=== PATIENT | female | born 1990 | race Hispanic/Latino ===

== ENCOUNTER → 2023-04-22 | Emergency (ER) | payer SELFPAY ==
[2023-04-22 09:43] LABS: Absolute Lymphocytes (CBC) 1.8 K/uL (0.7-4.9); Hematocrit 38.6 % (36.0-45.0); Lymphocytes % 19.8 % (15.3-44.8); MCV 94.3 fL (80-100); MPV 9.4 fL (7.6-11.3); Platelets 217 thou/uL (152-406)
[2023-04-22 09:50] LABS: Specific Gravity 1.006 (1.005-1.030)
[2023-04-22 09:53] LABS: Specific Gravity 1.006 (1.005-1.030); Urine Bacteria <20 /HPF (<20); Urine Bilirubin NEGATIVE (Negative); Urine Blood 3+ (OVER) (Negative); Urine Clarity Extremely Turbid (Clear); Urine Color Light-Brown (Yellow); Urine Glucose NEGATIVE (Negative); Urine Protein TRACE (Negative); Urine RBC >50 /HPF (None Seen); Urine Urobilinogen Normal (Normal)
[2023-04-22 10:10] LABS: Potassium 3.3 mEq/L (3.5-5.1)
--- NOTE | 2023-04-22 10:27 | RAD REPORT ---
EXAM DESCRIPTION: US - Transvaginal OB - 04/22/2023 9:59 am CLINICAL HISTORY: VAGINAL BLEEDING COMPARISON: No comparisons FINDINGS: The uterus appears normal size. Suspected 2 cm fibroid is present anteriorly lower uterine segment. Endometrium measures 10 mm in maximum thickness. There is no evidence of IUP. The maternal adnexa and ovaries are within normal limits. Normal Doppler blood flow was demonstrated to both ovaries. IMPRESSION: No IUP is visualized. Endometrial stripe is thickened to 10 mm. If the patient has a positive HCG level, this would be considered a of unknown location. F ollow-up serial HCG levels and pelvic sonography in 7-10 days would be recommended.
--- NOTE | 2023-04-22 10:47 | ER ---
Nurse's Notes [facility] Name: Joana Funez Age: 32 yrs Sex: Female : 1990 Arrival Date: 04/22/2023 Time: 08:47 Bed 7 Private MD: Diagnosis: Incomplete spontaneous without complication Presentation: 04/22 08:54 Chief complaint: Patient states: spotting since Tuesday, seen at [facility] and was aa5 diagnosed with UTI, was given antibiotics, pt states "the pharmacy took very long so I haven't started the antibiotics yet". Pt reports lower abd cramping around 0000 today. 08:54 Coronavirus screen: At this time, the client does not indicate any symptoms associated aa5 with coronavirus-19. Ebola Screen: Patient denies travel to an Ebola-affected area in the 21 days before illness onset. Initial Sepsis Screen: Does the patient meet any 2 criteria? HR > 90 bpm. Does the patient have a suspected source of infection? No. Patient's initial sepsis screen is negative. Risk Assessment: Do you want to hurt yourself or someone else? Patient reports no desire to harm self or others. Onset of symptoms was March 2023. 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 - Social history:: Smoking status: Patient denies any tobacco usage or history of. - Family history:: not pertinent. - Hospitalizations: : No recent hospitalization is reported. Screenin:00 [facility] ED Fall Risk Assessment (Adult) History of falling in the last 3 months, rs5 including since admission No falls in past 3 months (0 pts) Confusion or Disorientation No (0 pts) Intoxicated or Sedated No (0 pts) Impaired Gait No (0 pts) Mobility Assist Device Used No (0 pt) Altered Elimination No (0 pt) Score/Fall Risk Level 0 - 2 = Low Risk Oriented to surroundings, Maintained a safe environment. Abuse screen: Denies threats or abuse. Nutritional screening: No deficits noted. Tuberculosis screening: No symptoms or risk factors identified. Assessment: 09:00 General: Appears in no apparent distress. uncomfortable, Behavior is calm, cooperative. rs5 Pain: Complains of pain in lower abdomen Pain does not radiate. Pain currently is 4 out of 10 on a pain scale. Quality of pain is described as crampy, Pain began 4 hours ago. Is intermittent. Neuro: Level of Consciousness is awake, alert, obeys commands, Oriented to person, place, time, situation. Cardiovascular: Heart tones S1 S2 present Patient's skin is warm and dry. Rhythm is regular. Respiratory: Airway is patent Respiratory effort is even, unlabored, Respiratory pattern is regular, symmetrical, Breath sounds are clear bilaterally. GI: Abdomen is round non-distended, Bowel sounds present X 4 quads. Abd is soft and non tender X 4 quads. 09:00 : Denies burning with urination, pain. EENT: No signs and/or symptoms were reported rs5 regarding the EENT system. Derm: No signs and/or symptoms reported regarding the dermatologic system. Musculoskeletal: Circulation, motion, and sensation intact. Range of motion: intact in all extremities. 10:05 Reassessment: Patient and/or family updated on plan of care and expected duration. Pain rs5 level reassessed. Patient is alert, oriented x 3, equal unlabored respirations, skin warm/dry/pink. Patient denies pain at this time. 10:57 Obstetrical Assessment: Patient reports abdominal cramping. ko1 Vital Signs: 08:54 BP 129 / 81; Pulse 109; Resp 16 S; Temp 98(O); Pulse Ox 99% on R/A; Weight 54.43 kg aa5 (R); Height 5 ft. 0 in. (R); 10:57 BP 125 / 78; Pulse 92; Resp 14; Pulse Ox 100% ; ko1 08:54 Body Mass Index 23.44 (54.43 kg, 152.4 cm) aa5 ED Course: 08:51 Patient arrived in ED. im 08:53 Vazquez Rubio MD is Attending Physician. rn 08:54 Kristi Anguiano RN is Primary Nurse. ko1 08:54 Arm band placed on. aa5 09:00 Patient has correct armband on for positive identification. Bed in low position. Call rs5 light in reach. Side rails up X2. 09:02 Inserted saline lock: 20 gauge in right antecubital area, using aseptic technique. rs5 Blood collected. 09:06 Triage completed. aa5 09:15 No provider procedures requiring assistance completed. rs5 09:28 Urinalysis w/ reflexes Sent. ko1 09:28 Quantitative Hcg Sent. ko1 09:28 Test, Urine Sent. ko1 09: CBC with Diff Sent. ko1 09:28 Basic Metabolic Panel Sent. ko1 09:28 Abo/rh Typing Sent. ko1 10:01 US Transvaginal Ob In Process Unspecified. EDMS 10:57 Provided Education on: na. ko1 10:57 IV discontinued, intact, bleeding controlled, No redness/swelling at site. Pressure ko1 dressing applied. Administered Medications: No medications were administered Medication: 09:15 VIS not applicable for this client. rs5 Outcome: 10:47 Discharge ordered by . rn 10:57 Discharged to home ambulatory, ko1 10:57 Condition: stable 10:57 Discharge instructions given to patient, Instructed on discharge instructions, follow up and referral plans. Demonstrated understanding of instructions, follow-up care, 10:59 Patient left the ED. ko1 Signatures: Dispatcher [employer] EDMS Vazquez Rubio MD MD rn Calderon, Audri RN RN aa5 Kristi Anguiano RN RN ko1 Jean Pierre Aguayo RN RN rs5 Cristin Tracy Corrections: (The following items were deleted from the chart) 09:04 08:57 Allergies: No Known Allergies; aa5 aa5
--- NOTE | 2023-04-22 10:47 | EDPHYS ---
Physician Documentation [facility] Name: Joana Funez Age: 32 yrs Sex: Female : 1990 Arrival Date: 04/22/2023 Time: 08:47 Bed 7 Private MD: ED Physician Vazquez Rubio HPI: 04/22 09:00 This 32 yrs old Female presents to ER via Unassigned with complaints of Vaginal rn Bleeding, + Preg <12wks, Abdominal Cramping. 09:00 The patient presents to the emergency department with vaginal bleeding, that is light. rn The estimated gestational age is 5 weeks. Previous pregnancies: the patient has never been . The patient has not experienced similar symptoms in the past. The patient has been recently seen by a physician:. Patient reports vaginal bleeding, similar to menstrual period. No clots. Does not take blood thinners. No abdominal pain. Reports started spotting on Tuesday, seen at [facility], hCG was at thousand at that time. Believes blood type is O+. Is being treated for urinary tract infection at this time. Told ultrasound showed very early . Patient reports increase in vaginal bleeding as of this morning. No trauma. No fever.. 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 - Social history:: Smoking status: Patient denies any tobacco usage or history of. - Family history:: not pertinent. - Hospitalizations: : No recent hospitalization is reported. ROS: 09:00 Constitutional: Negative for fever, chills, and weight loss, Cardiovascular: Negative rn for chest pain, palpitations, and edema, Respiratory: Negative for shortness of breath, cough, wheezing, and pleuritic chest pain, Abdomen/GI: Negative for abdominal pain, nausea, vomiting, diarrhea, and constipation, : Positive for vaginal bleeding Exam: 09:00 Constitutional: This is a well developed, well nourished patient who is awake, alert, rn and in no acute distress. Cardiovascular: Regular rate and rhythm. No pulse deficits. Respiratory: No increased work of breathing, no retractions or nasal flaring. Abdomen/GI: Soft, nontender Vital Signs: 08:54 BP 129 / 81; Pulse 109; Resp 16 S; Temp 98(O); Pulse Ox 99% on R/A; Weight 54.43 kg aa5 (R); Height 5 ft. 0 in. (R); 10:57 BP 125 / 78; Pulse 92; Resp 14; Pulse Ox 100% ; ko1 08:54 Body Mass Index 23.44 (54.43 kg, 152.4 cm) aa5 MDM: 08:53 Patient medically screened. rn 10:14 Differential diagnosis: ectopic . Data reviewed: vital signs, nurses notes, advertising intern test result(s), radiologic studies, ultrasound. Counseling: I had a detailed discussion with the patient and/or guardian regarding the historical points, exam findings, and any diagnostic results supporting the discharge/admit diagnosis, lab results, radiology results, the need for outpatient follow up, to return to the emergency department if symptoms worsen or persist or if there are any questions or concerns that arise at home. Special discussion: I discussed with the patient/guardian in detail that at this point there is no indication for admission to the hospital. It is understood, however, that if the symptoms persist or worsen the patient needs to return immediately for re-evaluation. Based on the history and exam findings, there is no indication for further emergent testing or inpatient evaluation. I discussed with the patient/guardian the need to see the OB Gyne specialist for further evaluation of the symptoms. 10:44 ED course: ECG on Tuesday was a little over 1000 per online records that patient pulled rn up on her phone. Now down to 530. Most likely going to culminate in miscarriage. Patient otherwise hemodynamically stable. Will discharge home with expectant management and conservative treatment. Recommend follow-up with her OB and given strict return precautions. Already on antibiotics for UTI which may have led to miscarriage. Rh+, does not require RhoGAM. 04/22 08:53 Order name: Abo/rh Typing; Complete Time: 10:12 rn 04/22 08:53 Order name: Basic Metabolic Panel; Complete Time: 10:12 rn 04/22 08:53 Order name: CBC with Diff; Complete Time: 10:04 rn 04/22 08:53 Order name: Test, Urine; Complete Time: 10:04 rn 04/22 08:53 Order name: Quantitative Hcg; Complete Time: 10:12 rn 04/22 08:53 Order name: Urinalysis w/ reflexes; Complete Time: 10:04 rn 04/22 09:57 Order name: Urine Culture [facility] 04/22 08:53 Order name: US Transvaginal Ob; Complete Time: 10:30 rn 04/22 08:53 Order name: IV Saline Lock; Complete Time: 09:12 rn 04/22 08:53 Order name: Labs collected and sent; Complete Time: 09:12 rn 04/22 08:53 Order name: NPO; Complete Time: 08:54 rn Administered Medications: No medications were administered Disposition Summary: 04/22/23 10:47 Discharge Ordered Notes: Location: Home rn Problem: new rn Symptoms: have improved rn Condition: Stable rn Diagnosis - Incomplete spontaneous without complication rn Followup: rn - With: Private Physician - When: As needed - Reason: Recheck today's complaints, Re-evaluation by your physician Discharge Instructions: - Discharge Summary Sheet rn - Miscarriage rn Forms: - Medication Reconciliation Form rn - Thank You Letter rn - Antibiotic information technology internship - Prescription Opioid Use rn - Patient Portal Instructions rn - Leadership Thank You Letter rn Signatures: Dispatcher [employer] Vazquez Mayfield MD MD rn Calderon, Audri, RN RN aa5 Corrections: (The following items were deleted from the chart) 09: 08:57 Allergies: No Known Allergies; aa5 aa5
[2023-04-22 11:11] VITALS: BP 125/78; TEMP 98; O2SAT 100
== END ==
LOC: ER 08:47
DX: O03.4 Incomplete spontaneous abortion without complication (principal)
CPT/HCPCS: 36415; 76817; 80048; 81001; 81025; 84702; 85025; 86900; 86901; 87077; 87086; 87088; 87186